=== PATIENT | male | born 1965 | race Caucasian/White ===

== ENCOUNTER 2024-07-30 00:21 | Outpatient (CLI) | payer BC, SELFPAY ==
--- NOTE | 2024-07-30 08:34 | DI.RAD_ITS ---
Exam(s) XR ANKLE RT COMPLETE EXAM: XR ANKLE RT COMPLETE CLINICAL HISTORY: PAIN IN ANKLE AND FOOT M25.579 RECURRENT ANKLE AND GREAT TOE PAIN. TECHNIQUE: 2D digital imaging was performed. COMPARISON: No exams were available for comparison FINDINGS: 3 views Small osteophytic density seen immediately subjacent to the lateral malleolus is either accessory oss icle or previous avulsion injury. No associated overlying soft tissue swelling. There is no widenin g the ankle mortise. Medial and posterior malleoli appear intact. Talar dome unremarkable. Small inferior calcaneal spur noted. Also enthesophyte noted on the posterior calcaneus Achilles ins ertion site. There also appears to be a posterior calcaneal ???pump hump???. The Achilles tendon th ickness appears upper normal. Calcification is noted in the soft tissues anteriorly above the level of the distal talus. This is p robably vascular calcification. Bone density is normal. No osseous tarsal coalition evident. IMPRESSION: Findings in the posterior calcaneus as above. Correlation with any clinical signs of Cherri's sympt omatology recommended. DATA REPOSITORY: RADIATION DOSE DELIVERED:
--- NOTE | 2024-07-30 08:34 | DI.RAD_ITS ---
Exam(s) XR FOOT RT COMPLETE EXAM: XR FOOT RT COMPLETE CLINICAL HISTORY: PAIN RT ANKLE AND FOOT M25.579 RECURRENT ANKLE AND GREAT TOE PAIN. TECHNIQUE: 2D digital imaging was performed. COMPARISON: No exams were available for comparison FINDINGS: 3 views There is no evidence of acute fracture or diastasis of the Lisfranc joint. Bone density normal. No osseous lesions. Great toe metatarsophalangeal joint appears unremarkable. There is no evidence of pes planus. Inferior calcaneal spur noted as is some calcification at the insertional aspect of the plantar fascia on the undersurface of the calcaneus. There is also an enthesophyte at the insertiona l aspect of the Achilles tendon on the posterior calcaneus and there is a ???pump bump??? on the post erior superior aspect of the calcaneus. IMPRESSION: No acute osseous findings in the foot. Hindfoot findings as above. Correlation with any clinical symptomatology of Cherri's syndrome recom mended DATA REPOSITORY: RADIATION DOSE DELIVERED:
== END 2024-07-30 00:41 ==
PROVIDERS: Visit Provider Student in an Organized Health Care Education/Training Program
DX: M25.571 Pain in right ankle and joints of right foot (principal)
CPT/HCPCS: 73610; 73630

== ENCOUNTER 2024-09-10 13:03 | Outpatient (REF) | payer BC, SELFPAY ==
[2024-09-10 15:44] LABS: ESR 19 mm/hr (0-20)
[2024-09-10 15:53] LABS: Anion Gap 6.8 mmol/L (3-11); BUN 25 mg/dL (7-18); CO2 27.2 mmol/L (21.0-32.0); Calcium 9.6 mg/dL (8.5-10.1); Chloride 107 mmol/L (98-107); Estimated GFR 87.24 (mL/min/1.73m2); Glucose 93 mg/dL (74-106); Potassium 4.4 mmol/L (3.5-5.1); Sodium 141 mmol/L (136-145)
[2024-09-10 16:02] LABS: C-Reactive Protein < 0.50 mg/dL (<or=0.5)
[2024-09-10 21:37] LABS: Rheumatoid Factor <8.6 IU/mL (<12.0)
[2024-09-13 09:57] LABS: Cyclic Citrullinated Peptide <2.5 U/mL (<5.0)
[2024-09-13 11:03] LABS: Lyme Ab w Rflx to Lyme Confirm Negative (Negative)
== END 2024-09-10 13:04 | disposition home or self-care (01) ==
LOC: NCHCN 13:03
PROVIDERS: Visit Provider Student in an Organized Health Care Education/Training Program
DX: M25.571 Pain in right ankle and joints of right foot (principal); I10 Essential (primary) hypertension
CPT/HCPCS: 80048; 85652; 86200; 86140; 86431; 86618

== ENCOUNTER 2024-09-24 11:55 | Outpatient (REF) | payer BC, SELFPAY ==
[2024-09-24 16:18] LABS: Anion Gap 8.6 mmol/L (3-11); BUN 26 mg/dL (7-18); CO2 26.4 mmol/L (21.0-32.0); CREATININE 1.2 mg/dL (0.70-1.30); Calcium 9.4 mg/dL (8.5-10.1); Chloride 103 mmol/L (98-107); Glucose 112 mg/dL (74-106); Potassium 4.5 mmol/L (3.5-5.1); Sodium 138 mmol/L (136-145)
== END 2024-09-24 11:56 | disposition home or self-care (01) ==
LOC: NCHCN 11:55
PROVIDERS: Visit Provider Student in an Organized Health Care Education/Training Program
DX: I10 Essential (primary) hypertension (principal)
CPT/HCPCS: 80048